=== PATIENT | female | born 1935 ===

== ENCOUNTER 2020-05-08 05:30 | Day surgery (SDC) | payer OTHER | END 2020-05-08 12:05 | disposition home or self-care (01) | LOC: AMB-ENDOS 05:30 | PROVIDERS: ATTEND Colon & Rectal Surgery | DX: K62.89 Other specified diseases of anus and rectum (principal); K64.1 Second degree hemorrhoids; Z20.822 Contact with and (suspected) exposure to COVID-19 ==